=== PATIENT | male | born 1970 | race Caucasian/White ===

== ENCOUNTER 2022-08-10 09:03 | Outpatient (CLI) | payer BC, SELFPAY ==
[2022-08-10 13:27] LABS: Albumin* 4.1 g/dL (3.3-5.0); Chloride* 105 mmol/L (96-114); Sodium* 140 mmol/L (135-149)
[2022-08-10 13:28] LABS: Potassium* 4.2 mmol/L (3.6-5.1)
[2022-08-10 13:30] LABS: Alkaline Phosphatase* 61 U/L (40-150); Aspartate Amino Transferase* 27 U/L (12-35); Bilirubin Total* 0.6 mg/dL (0.1-1.5); Blood Urea Nitrogen* 18 mg/dL (7-30); Carbon Dioxide* 29 mmol/L (20-32); Cholesterol* 154 mg/dL (90-199); Creatinine* 0.8 mg/dL (0.5-1.5); Estimated Glomerular Filt Rate 106 ml/min; Glucose* 86 mg/dL (60-115); Total Protein* 7.1 g/dL (6.0-8.3)
[2022-08-10 13:31] LABS: Alanine Aminotransferase* 28 U/L (4-50); Calcium* 8.9 mg/dL (8.4-10.6); HDL Cholesterol* 40 mg/dL (>=40); LDL Cholesterol Calculated 84 mg/dL (<100); Triglycerides* 152 mg/dL (40-149)
[2022-08-10 14:02] LABS: PSA Screen* 1.81 ng/mL (0.10-4.00)
== END 2022-08-10 09:04 | disposition home or self-care (01) ==
PROVIDERS: PCP Family Medicine; Visit Provider Family Medicine
DX: Z00.00 Encounter for general adult medical examination without abnormal findings (principal); E78.5 Hyperlipidemia, unspecified; G89.4 Chronic pain syndrome; M79.7 Fibromyalgia; Z83.3 Family history of diabetes mellitus; Z12.5 Encounter for screening for malignant neoplasm of prostate
CPT/HCPCS: 80053; 80061; 84153

== ENCOUNTER 2023-10-12 08:12 | Outpatient (CLI) | payer BC, SELFPAY | END 2023-10-12 08:13 | disposition home or self-care (01) | PROVIDERS: PCP Family Medicine; Visit Provider Family Medicine | DX: Z13.220 Encounter for screening for lipoid disorders (principal); Z13.228 Encounter for screening for other metabolic disorders; Z12.5 Encounter for screening for malignant neoplasm of prostate | CPT/HCPCS: 80048; 80061; G0103 ==

== ENCOUNTER 2025-06-02 07:30 | Outpatient (CLI) | payer BC, SELFPAY | END 2025-06-02 07:31 | disposition home or self-care (01) | LOC: NFLDREF 06-07 20:26 | PROVIDERS: PCP Family Medicine; Referring Provider Family Medicine; Visit Provider Family Medicine | DX: Z13.9 Encounter for screening, unspecified (principal) | CPT/HCPCS: 80053; 80061; G0103 ==